=== PATIENT | male | born 1955 ===

== ENCOUNTER 2023-11-23 23:59 | Emergency (ER) | payer MEDICARE, OTHER ==
[2023-11-23 23:53] LABS: BASOPHILS PERCENT AUTO 0.2 % (0.0-1.0); EOSINOPHILS PERCENT AUTO 0.9 % (1.0-3.0); HEMATOCRIT 46.9 % (40.0-54.0); HEMOGLOBIN 15.5 g/dL (14.0-18.0); LYMPHOCYTES PERCENT AUTO 14.8 % (20.5-50.1); MEAN CORPUSCULAR HEMOGLOBIN 29.2 pg (27.0-34.0); MEAN CORPUSCULAR VOLUME 88.5 fL (80-100); MONOCYTES PERCENT AUTO 6.4 % (2-8); NEUTROPHILS PERCENT AUTO 77.7 % (42.2-75.2); PLATELET COUNT,PLT 191 10^3/uL (150-450); WHITE BLOOD CELL COUNT,WBC 10.5 10^3/uL (5.0-10.0)
[~2023-11-23 23:59] MED LIST: Nitroglycerin 0.4 MG Tab.SL SL ONE
[2023-11-24 00:16] LABS: A/G RATIO 1.2; ALBUMIN 3.8 g/dL (3.4-5.0); ALKALINE PHOSPHATASE 108 U/L (46-116); ANION GAP 14.1 mEq/L (7-13); BILIRUBIN TOTAL 0.5 mg/dL (0.2-1.0); BLOOD UREA NITROGEN,BUN 20 mg/dL (7-18); BUN/CREATININE RATIO 13.2 (No establ ref range); CALCIUM 8.6 mg/dL (8.5-10.1); CARBON DIOXIDE,CO2 28 mmol/L (21-32); CHLORIDE,CL 100 mmol/L (98-107); CREATININE 1.51 mg/dL (0.70-1.30); EST CRCL DRUG DOSING (CG) 48.34 mL/min; GLUCOSE RANDOM 159 mg/dL (70-99); LIPASE 44 U/L (16-77); POTASSIUM,K 4.1 mmol/L (3.5-5.1); PROTEIN TOTAL,TP 6.9 g/dL (6.4-8.2); SODIUM,NA 138 mmol/L (136-145)
[2023-11-24 00:17] LABS: ESTIMATED GFR 50 mL/min (>=60); LACTIC ACID 1.2 mmol/L (0.4-2.0)
[2023-11-24] MEDS ORDERED: HYDROmorphone 1 MG/ML Syringe IVPUSH ONE (00:22)
[2023-11-24 00:23] LABS: C-REACTIVE PROTEIN < 0.50 ng/dL (<=0.50); ETHANOL BLOOD MEDICAL < 3 mg/dL (0)
[2023-11-24 00:26] LABS: INR 0.9 (0.9-1.2); PROTHROMBIN TIME 9.7 SEC (9.0-12.0); PTT,PARTIAL THROMBOPLSTIN TIME 26.2 SEC (22.0-34.0)
[2023-11-24 00:28] LABS: B-TYPE NATRIURETIC PEPTIDE,BNP 123 pg/ml (0-100)
[2023-11-24 00:33] LABS: ALANINE AMINOTRANSFERASE,ALT < 6 U/L (16-63)
[2023-11-24 00:42] LABS: CORONAVIRUS COVID-19 NAA NEGATIVE (NEGATIVE); INFLUENZA A NAA NEGATIVE (NEGATIVE); INFLUENZA B NAA NEGATIVE (NEGATIVE); RESPIRATORY SYNCYTIAL VIR NAA NEGATIVE (NEGATIVE)
[2023-11-24 00:54] LABS: ASPARTATE AMNIOTRANSFERASE,AST < 5 U/L (15-37)
[2023-11-24] MEDS ORDERED: Iopamidol 612 MG/ML 100 ML Bottle IVPUSH ONE (00:54)
[2023-11-24] MEDS ORDERED: Sodium Chloride 0.9% 1,000 ML IV ONE (00:57)
[2023-11-24] MEDS ORDERED: Ketorolac 30 MG/ML SDV IVPUSH ONE (02:10)
[2023-11-24] MEDS ORDERED: Aluminum Hydroxide/Magnesium Hydroxide/Simethicone Susp 30 ML Cup PO ONE (02:13)
[2023-11-24] MEDS ORDERED: Lidocaine 2% Viscous Solution 15 ML UD PO ONE (02:13)
[2023-11-24 02:25] LABS: APPEARANCE,URINE CLEAR (CLEAR); BILIRUBIN,URINE NEGATIVE (NEGATIVE); COLOR,URINE YELLOW (YELLOW); GLUCOSE,URINE NEGATIVE (NEGATIVE); KETONES,URINE 15 (NEGATIVE); LEUKOCYTE ESTERASE,URINE NEGATIVE (NEGATIVE); NITRITE,URINE NEGATIVE (NEGATIVE); OCCULT BLOOD,URINE NEGATIVE (NEGATIVE); PROTEIN,URINE TRACE (NEGATIVE); UROBILINOGEN,URINE 0.2 mg/dL (0.2-1.0)
[2023-11-24 02:29] LABS: AMPHETAMINES,URINE NEGATIVE (NEGATIVE); BARBITURATES,URINE NEGATIVE (NEGATIVE); BENZODIAZEPINE,URINE NEGATIVE (NEGATIVE); MDMA (ECSTASY), URINE NEGATIVE (NEGATIVE); METHADONE,URINE NEGATIVE (NEGATIVE); METHAMPHETAMINES,URINE NEGATIVE (NEGATIVE); OPIATES,URINE POSITIVE (NEGATIVE); OXYCODONE,URINE NEGATIVE (NEGATIVE); PHENCYCLIDINE,URINE NEGATIVE (NEGATIVE); TCA,URINE POSITIVE (NEGATIVE)
[2023-11-24 03:02] LABS: RBC,URINE 0-5 /HPF (0-5); WBC,URINE 0-5 /HPF (0-5/HPF)
[2023-11-24 03:03] LABS: BACTERIA,URINE FEW /HPF (0-FEW/HPF); EPITHELIAL CELLS,URINE RARE /HPF (NOT SEEN); HYALINE CASTS,URINE FEW; MUCUS,URINE MANY /LPF (NOT SEEN)
== END 2023-11-24 03:12 | disposition home or self-care (01) ==
LOC: DL.ED 23:59
DX: N20.0 Calculus of kidney (principal); K80.50 Calculus of bile duct without cholangitis or cholecystitis without obstruction; K57.90 Diverticulosis of intestine, part unspecified, without perforation or abscess without bleeding; R03.0 Elevated blood-pressure reading, without diagnosis of hypertension; N40.0 Benign prostatic hyperplasia without lower urinary tract symptoms; R16.1 Splenomegaly, not elsewhere classified; Z79.82 Long term (current) use of aspirin; Z79.899 Other long term (current) drug therapy; Z20.822 Contact with and (suspected) exposure to COVID-19
CPT/HCPCS: 0241U; 36415; 71045; 74177; 80053; 80305-QW; 80307; 81001; 83605; 83690; 83880; 84484; 85025; 85379; 85610; 85730; 86140; 93005; 93010; 96361; 96374; 96375; 99284; 99285-25; A9270-GY; J1170; J1885; J7030; Q9967